=== PATIENT | male | born 1970 | race Two or more races ===

== ENCOUNTER 2021-02-19 11:06 | Inpatient (IN) | payer OTHER ==
[2021-02-19 12:12] LABS: BASO % 0.8 % (0-2.0); EOS % 3.1 % (0-4.5); HEMATOCRIT 42.5 % (35.4-49); HEMOGLOBIN 14.5 GM/dL (11.7-16.9); LYMPH % 33.6 % (8-40); MCH 31.3 pg (25.7-33.7); MCHC 34.1 g/dl (32.0-35.9); MEAN CELL VOLUME 91.7 fl (80-96); MEAN PLT VOLUME 9.5 fl (7.5-11.1); MONO % 10.4 % (3.8-10.2); NEUT % 52.1 % (42.8-82.8); PLATELET COUNT 505 K/MM3 (134-434); RBC 4.64 M/mm3 (4.00-5.60); RDW 12.2 % (11.9-15.9); WHITE BLOOD COUNT 8.1 K/mm3 (4.0-10.0)
[2021-02-19 12:21] LABS: INR 0.94 (0.83-1.09); PROTHROMBIN TIME (PATIENT) 11.4 SEC (9.7-13.0)
[2021-02-19 12:23] LABS: ACTIVATED PTT 29.9 SECONDS (25.2-36.5)
[2021-02-19 12:31] LABS: CHLORIDE 104 mmol/L (98-107); SODIUM 139 mmol/L (136-145)
[2021-02-19 12:33] LABS: ALBUMIN 4.1 g/dl (3.4-5.0); CALCIUM 9.5 mg/dL (8.5-10.1)
[2021-02-19 12:34] LABS: ANION GAP 5 MMOL/L (8-16); BLOOD UREA NITROGEN 11.9 mg/dL (7-18); CO2 30 mmol/L (21-32); GLUCOSE,RANDOM 93 mg/dL (74-106)
[2021-02-19 12:36] LABS: CHOLESTEROL 239 mg/dL (50-200); TRIGLYCERIDES 518 mg/dL (0-150)
[2021-02-19 12:37] LABS: CREATININE 1.2 mg/dL (0.55-1.3); LDL CHOLESTEROL (ONLY SJRH) 125 mg/dL (5-100); SGOT/AST 22 U/L (15-37); SGPT/ALT 36 U/L (13-61)
[2021-02-19 12:38] LABS: BILIRUBIN,TOTAL 0.8 mg/dL (0.2-1); TOT PROT 7.9 g/dl (6.4-8.2)
[2021-02-19 12:39] LABS: ALK PHOS 99 U/L (45-117); HDL CHOLESTEROL 40 mg/dL (40-60)
[2021-02-19] MEDS ORDERED: ASPIRIN 325 MG ENTERIC COATED TABLET (FP) PO ONE (12:54)
[2021-02-19] MEDS ORDERED: ATORVASTATIN CA 80 MG TABLET (FP) PO ONE (12:55)
[2021-02-19] MEDS ORDERED: ATORVASTATIN CA 80 MG TABLET (FP) ONE (13:04)
[2021-02-19] MEDS ORDERED: ASPIRIN 325 MG ENTERIC COATED TABLET (FP) ONE (13:04)
[2021-02-19] MEDS ORDERED: FOLIC ACID 1 MG TABLET (FP) ONE (15:30)
[2021-02-19] MEDS ORDERED: ENOXAPARIN NA (PORCINE) 40 MG/0.4 ML DISP.SYRIN SQ ONE (15:31)
[2021-02-19] MEDS ORDERED: PANTOPRAZOLE SODIUM 40 MG/100 ML BAG IVPB ONE (15:31)
[2021-02-19] MEDS: PANTOPRAZOLE SODIUM 40 MG VIAL IVPUSH SCH (15:39)
[2021-02-19] MEDS: ENOXAPARIN NA (PORCINE) 40 MG/0.4 ML DISP.SYRIN SQ SCH (15:39)
[2021-02-19] MEDS: FOLIC ACID 1 MG TABLET (FP) PO SCH (15:39)
[2021-02-19 16:03] LABS: PH,URINE 7.5 (5.0-8.0); URINE APPEARANCE CLEAR; URINE BILIRUBIN NEGATIVE (NEGATIVE); URINE COLOR YELLOW; URINE GLUCOSE (UA) NEGATIVE (NEGATIVE); URINE KETONE NEGATIVE (NEGATIVE); URINE LEUK ESTERASE NEGATIVE (NEGATIVE); URINE NITRITE NEGATIVE (NEGATIVE); URINE PROTEIN NEGATIVE (NEGATIVE); URINE UROBILINOGEN 0.2 mg/dL (0.2-1.0)
[2021-02-19 16:15] LABS: METHADONE, UR NEGATIVE ng/ml (CUTOFF=300); OPIATES, URI NEGATIVE ng/ml (CUTOFF=300); PHENCYCLIDINE,URINE NEGATIVE ng/ml (CUTOFF=25); URINE AMPHETAMINES NEGATIVE ng/ml (CUTOFF=500)
[2021-02-19 16:23] LABS: COCAINE, UR POSITIVE ng/ml (CUTOFF=300); URINE BARBITURATES NEGATIVE ng/ml (CUTOFF=200); URINE BENZODIAZEPINES NEGATIVE ng/ml (CUTOFF=200)
[2021-02-19] MEDS ORDERED: THIAMINE HCL 200 MG/2 ML VIAL ONE (17:58)
[2021-02-19] MEDS: THIAMINE HCL 200 MG/2 ML VIAL IVPB SCH (18:20)
[2021-02-19 21:40] VITALS: BMI 36.6
[2021-02-20 06:53] LABS: BASO % 0.9 % (0-2.0); EOS % 2.7 % (0-4.5); HEMATOCRIT 38.7 % (35.4-49); HEMOGLOBIN 13.8 GM/dL (11.7-16.9); LYMPH % 27.7 % (8-40); MCH 32.1 pg (25.7-33.7); MCHC 35.6 g/dl (32.0-35.9); MEAN CELL VOLUME 90.3 fl (80-96); MEAN PLT VOLUME 9.1 fl (7.5-11.1); MONO % 9.9 % (3.8-10.2); NEUT % 58.8 % (42.8-82.8); PLATELET COUNT 420 K/MM3 (134-434); RBC 4.28 M/mm3 (4.00-5.60); RDW 11.7 % (11.9-15.9); WHITE BLOOD COUNT 7.6 K/mm3 (4.0-10.0)
[2021-02-20 07:16] LABS: ALBUMIN 3.5 g/dl (3.4-5.0); BLOOD UREA NITROGEN 13.5 mg/dL (7-18); CALCIUM 8.6 mg/dL (8.5-10.1)
[2021-02-20 07:17] LABS: MAGNESIUM 2.1 mg/dL (1.8-2.4)
[2021-02-20 07:19] LABS: CREATININE 1.2 mg/dL (0.55-1.3); PHOSPHOROUS 3.4 mg/dL (2.5-4.9)
[2021-02-20 07:20] LABS: BILIRUBIN,TOTAL 0.9 mg/dL (0.2-1); TOT PROT 6.6 g/dl (6.4-8.2)
[2021-02-20] MEDS ORDERED: PT OWN MED DRAWER 7, Y5N ONE (09:38)
[2021-02-20] MEDS: ATORVASTATIN CA 80 MG TABLET (FP) PO SCH ×2 (10:07→21:01)
[2021-02-20] MEDS: PANTOPRAZOLE SODIUM 40 MG VIAL IVPUSH SCH (10:07)
[2021-02-20] MEDS: FOLIC ACID 1 MG TABLET (FP) PO SCH (10:08)
[2021-02-20] MEDS: ASPIRIN COATED 81 MG TABLET.EC PO SCH (10:08)
[2021-02-20] MEDS: ENOXAPARIN NA (PORCINE) 40 MG/0.4 ML DISP.SYRIN SQ SCH (10:08)
[2021-02-20] MEDS: THIAMINE HCL 200 MG/2 ML VIAL IVPB SCH (12:03)
[2021-02-21] MEDS: FOLIC ACID 1 MG TABLET (FP) PO SCH (09:31)
[2021-02-21] MEDS: ENOXAPARIN NA (PORCINE) 40 MG/0.4 ML DISP.SYRIN SQ SCH (09:31)
[2021-02-21] MEDS: ASPIRIN COATED 81 MG TABLET.EC PO SCH (09:31)
[2021-02-21] MEDS: PANTOPRAZOLE SODIUM 40 MG VIAL IVPUSH SCH (09:32)
[2021-02-21] MEDS ORDERED: ACETAMINOPHEN 325 MG TABLET (FP) ONE (10:09)
[2021-02-21] MEDS: THIAMINE HCL 200 MG/2 ML VIAL IVPB SCH (10:15)
[2021-02-21] MEDS ORDERED: ACETAMINOPHEN 325 MG TABLET (FP) PO ONE (11:00)
[2021-02-21] MEDS ORDERED: amLODIPine BESYLATE 2.5 MG TABLET (FP) PO SCH (12:45)
[2021-02-21 12:58] LABS: BASO % 0.9 % (0-2.0); EOS % 1.6 % (0-4.5); HEMATOCRIT 39.9 % (35.4-49); HEMOGLOBIN 13.8 GM/dL (11.7-16.9); LYMPH % 28.8 % (8-40); MCH 31.6 pg (25.7-33.7); MCHC 34.5 g/dl (32.0-35.9); MEAN CELL VOLUME 91.6 fl (80-96); MEAN PLT VOLUME 9.3 fl (7.5-11.1); MONO % 7.6 % (3.8-10.2); NEUT % 61.1 % (42.8-82.8); PLATELET COUNT 432 K/MM3 (134-434); RBC 4.36 M/mm3 (4.00-5.60); RDW 12.1 % (11.9-15.9); WHITE BLOOD COUNT 7.4 K/mm3 (4.0-10.0)
[2021-02-21 13:16] LABS: CALCIUM 9.2 mg/dL (8.5-10.1)
[2021-02-21 13:17] LABS: ALBUMIN 3.6 g/dl (3.4-5.0); BLOOD UREA NITROGEN 11.5 mg/dL (7-18); MAGNESIUM 2.2 mg/dL (1.8-2.4)
[2021-02-21 13:20] LABS: CREATININE 1.1 mg/dL (0.55-1.3)
[2021-02-21 13:21] LABS: BILIRUBIN,TOTAL 0.8 mg/dL (0.2-1); TOT PROT 6.8 g/dl (6.4-8.2)
[2021-02-21 14:08] VITALS: BP 133/87; PULSE 65; TEMP 98.5
== END 2021-02-21 14:00 | disposition home or self-care (01) | DRG 47 ==
LOC: JER 11:06 → JERBED 14:00 → OBSVTOIN 15:06 → J4S 21:19
PROVIDERS: ATTEND Nurse Practitioner Family
DX: G45.9 Transient cerebral ischemic attack, unspecified (principal); F14.188 Cocaine abuse with other cocaine-induced disorder; I10 Essential (primary) hypertension; E78.5 Hyperlipidemia, unspecified; Z72.0 Tobacco use; H40.9 Unspecified glaucoma
CPT/HCPCS: 36415; 70450-TC; 70551-TC; 70552-TC; 80053; 80061; 80307; 81003; 82550; 82553; 83036; 83721; 83735; 84100; 84443; 84484; 85025; 85610; 85730; 86780; 86900; 93005; 93010; 93306-TC; 93880-TC; 97116-GP; 97161-GP; 99285-25; C9803; G0378; U0003; U0005

== ENCOUNTER 2021-03-05 12:49 | Emergency (ER) | payer OTHER ==
[2021-03-05 12:59] VITALS: BMI 25.1
[2021-03-05 14:00] LABS: BASO % 0.6 % (0-2.0); EOS % 1.2 % (0-4.5); HEMATOCRIT 40.7 % (35.4-49); HEMOGLOBIN 13.9 GM/dL (11.7-16.9); LYMPH % 23.9 % (8-40); MCH 31.2 pg (25.7-33.7); MCHC 34.1 g/dl (32.0-35.9); MEAN CELL VOLUME 91.3 fl (80-96); MEAN PLT VOLUME 9.1 fl (7.5-11.1); MONO % 8.5 % (3.8-10.2); NEUT % 65.8 % (42.8-82.8); PLATELET COUNT 494 K/MM3 (134-434); RBC 4.45 M/mm3 (4.00-5.60); WHITE BLOOD COUNT 8.1 K/mm3 (4.0-10.0)
[2021-03-05 14:17] LABS: CHLORIDE 106 mmol/L (98-107); SODIUM 141 mmol/L (136-145)
[2021-03-05 14:18] LABS: CALCIUM 9.2 mg/dL (8.5-10.1)
[2021-03-05 14:19] LABS: ANION GAP 8 MMOL/L (8-16); BLOOD UREA NITROGEN 15.2 mg/dL (7-18); CO2 28 mmol/L (21-32); GLUCOSE,RANDOM 91 mg/dL (74-106)
[2021-03-05 14:22] LABS: SGOT/AST 15 U/L (15-37); SGPT/ALT 30 U/L (13-61)
[2021-03-05 14:23] LABS: BILIRUBIN,TOTAL 0.7 mg/dL (0.2-1)
[2021-03-05 14:24] LABS: TOT PROT 7.7 g/dl (6.4-8.2)
[2021-03-05 14:25] LABS: ALK PHOS 82 U/L (45-117)
[2021-03-05] MEDS ORDERED: SODIUM CHLORIDE 0.9% 500 ML INFUS.BAG IV ONE (15:44)
[2021-03-05 16:46] VITALS: BP 144/83; PULSE 76; TEMP 98.4
== END 2021-03-05 17:40 | disposition home or self-care (01) ==
LOC: JER 12:49
DX: R55 Syncope and collapse (principal); R42 Dizziness and giddiness
CPT/HCPCS: 36415; 71045-TC-FY; 80053; 82550; 84484; 85025; 93005; 93010; 99285-25

== ENCOUNTER 2021-06-24 10:43 | Observation (INO) | payer OTHER ==
[2021-06-24] MEDS ORDERED: SODIUM CHLORIDE 1,000 ML IV SCH (11:15)
[2021-06-24 12:12] LABS: BASO % 0.9 % (0-2.0); EOS % 1.8 % (0-4.5); HEMATOCRIT 41.1 % (35.4-49); HEMOGLOBIN 13.9 GM/dL (11.7-16.9); LYMPH % 40.3 % (8-40); MCH 30.6 pg (25.7-33.7); MCHC 33.8 g/dl (32.0-35.9); MEAN CELL VOLUME 90.6 fl (80-96); MEAN PLT VOLUME 9.3 fl (7.5-11.1); MONO % 10.6 % (3.8-10.2); NEUT % 46.4 % (42.8-82.8); PLATELET COUNT 499 10^3/uL (134-434); RBC 4.54 M/mm3 (4.00-5.60); RDW 12.5 % (11.9-15.9); WHITE BLOOD COUNT 8.1 K/mm3 (4.0-10.0)
[2021-06-24 12:17] LABS: INR 0.97 (0.83-1.09); PROTHROMBIN TIME (PATIENT) 11.8 SEC (9.7-13.0)
[2021-06-24 12:19] LABS: ACTIVATED PTT 32.8 SECONDS (25.2-36.5)
[2021-06-24 13:04] LABS: CHOLESTEROL 200 mg/dL (50-200)
[2021-06-24 13:05] LABS: TRIGLYCERIDES 144 mg/dL (0-150)
[2021-06-24 13:06] LABS: LDL CHOLESTEROL (ONLY SJRH) 135 mg/dL (5-100)
[2021-06-24 13:07] LABS: HDL CHOLESTEROL 42 mg/dL (40-60)
[2021-06-24] MEDS ORDERED: ASPIRIN 81 MG CHEWABLE TABLETS PO ONE (13:22)
[2021-06-24 13:37] LABS: CHLORIDE 106 mmol/L (98-107); SODIUM 137 mmol/L (136-145)
[2021-06-24 13:38] LABS: CALCIUM 9.3 mg/dL (8.5-10.1)
[2021-06-24 13:39] LABS: ALBUMIN 4.2 g/dl (3.4-5.0); ANION GAP 6 MMOL/L (8-16); BLOOD UREA NITROGEN 16.4 mg/dL (7-18); CO2 26 mmol/L (21-32); GLUCOSE,RANDOM 88 mg/dL (74-106)
[2021-06-24 13:42] LABS: SGOT/AST 23 U/L (15-37); SGPT/ALT 44 U/L (13-61)
[2021-06-24 13:44] LABS: BILIRUBIN,TOTAL 0.6 mg/dL (0.2-1); TOT PROT 7.7 g/dl (6.4-8.2)
[2021-06-24 13:45] LABS: ALK PHOS 75 U/L (45-117)
[2021-06-24] MEDS ORDERED: ASPIRIN 81 MG CHEWABLE TABLETS ONE (14:35)
[2021-06-24] MEDS ORDERED: GABAPENTIN 100 MG CAPSULE PO SCH (22:00)
[2021-06-25 02:15] VITALS: TEMP 97.8
[2021-06-25 02:54] VITALS: BMI 26.4
[2021-06-25 08:10] LABS: HEMATOCRIT 38.9 % (35.4-49); HEMOGLOBIN 13.2 GM/dL (11.7-16.9); MCH 31.1 pg (25.7-33.7); MCHC 33.9 g/dl (32.0-35.9); MEAN CELL VOLUME 91.6 fl (80-96); MEAN PLT VOLUME 9.6 fl (7.5-11.1); PLATELET COUNT 429 10^3/uL (134-434); RBC 4.25 M/mm3 (4.00-5.60); RDW 12.2 % (11.9-15.9); WHITE BLOOD COUNT 6.1 K/mm3 (4.0-10.0)
[2021-06-25 08:36] LABS: CALCIUM 8.6 mg/dL (8.5-10.1)
[2021-06-25 08:37] LABS: ALBUMIN 3.7 g/dl (3.4-5.0); BLOOD UREA NITROGEN 17.9 mg/dL (7-18); MAGNESIUM 2.1 mg/dL (1.8-2.4)
[2021-06-25 08:40] LABS: PHOSPHOROUS 4.1 mg/dL (2.5-4.9)
[2021-06-25 08:41] LABS: BILIRUBIN,TOTAL 0.7 mg/dL (0.2-1); TOT PROT 7.1 g/dl (6.4-8.2)
[2021-06-25 08:57] VITALS: BP 131/75; PULSE 62
[2021-06-25] MEDS ORDERED: ENOXAPARIN NA (PORCINE) 40 MG/0.4 ML DISP.SYRIN SQ SCH (10:00)
[2021-06-25] MEDS ORDERED: ASPIRIN COATED 81 MG TABLET.EC PO SCH (10:00)
== END 2021-06-25 12:27 | disposition home or self-care (01) ==
LOC: JER 10:43 → JERBED 14:46 → UNDOADMOB 14:46 → INTOOBSV 14:46 → JERBED 06-25 01:48 → J4W 06-25 01:48 → JERBED 06-25 09:06 → J4W 06-25 09:06
PROVIDERS: ADMIT Internal Medicine
PROC: 3E0337Z Introduction of Electrolytic and Water Balance Substance into Peripheral Vein, Percutaneous Approach (ICD-10-PCS; principal; 2021-06-25)
DX: G45.9 Transient cerebral ischemic attack, unspecified (principal); F14.90 Cocaine use, unspecified, uncomplicated; I10 Essential (primary) hypertension; Z72.0 Tobacco use; H40.9 Unspecified glaucoma
CPT/HCPCS: 36415; 70450-TC; 70496-TC; 70498-TC; 70551-TC; 71045-TC-FY; 72141-TC; 80053; 80061; 82550; 83090; 83735; 84100; 84484; 85025; 85027; 85610; 85730; 86850; 86900; 86901; 93005; 93010; 96360; 99285-25; C9803; G0378; Q9967; U0003; U0005